=== PATIENT | female | born 2000 | race Caucasian/White ===

== ENCOUNTER 2021-06-14 15:36 | Outpatient (CLI) | payer BC, SELFPAY ==
--- NOTE | 2021-06-14 16:01 | ECG_ITS ---
Measurements Intervals [place] Rate: 82 P: 45 VT: 144 QRS: 67 QRSD: 97 T: 45 QT: 366 QTc: 428 Interpretive Statements SINUS RHYTHM WITH SINUS ARRHYTHMIA NORMAL ECG Electronically Signed On 06-14-2021 17:03:56 [employer] by Harsha Mohr D.O.
== END 2021-06-14 15:37 | disposition home or self-care (01) ==
LOC: ANHLAB 15:44
PROVIDERS: PCP Obstetrics & Gynecology; Visit Provider Obstetrics & Gynecology
DX: R55 Syncope and collapse (principal)
CPT/HCPCS: 93005

== ENCOUNTER 2021-06-22 12:53 | Outpatient (CLI) | payer BC, SELFPAY ==
--- NOTE | 2021-06-25 16:12 | WPDHOLTEREM ---
Holter/Event Monitor Holter/Event Monitor Date of procedure: 06/22/21 Holter/Event Procedure: 24 Hr Holter Monitor Indications: Tachycardia Conclusion: 1. 24 hour holter monitor on 06/22/21. 2. Underlying rhythm is sinus rhythm. HR range 50-143 bpm; average HR 83 bpm. 3. There are 3,945 premature supraventricular complexes, 6 supraventricular couplets, 6 supraventricular bigeminy and 95 supraventricular trigeminy. No supraventricular tachycardia. 4. There are 4,298 premature ventricular complexes, 1 ventricular couplet, 25 ventricular bigeminy, 33 ventricular trigeminy. No ventricular tachycardia. 5. No sinoatrial or atrioventricular blocks. No significant pauses greater than 2 seconds. 6. Patient reports symptoms of dizziness/lightheadedness which demonstrate sinus rhythm, HR range 76-106 bpm with 1 PVC.
== END 2021-06-22 12:54 | disposition home or self-care (01) ==
PROVIDERS: PCP Obstetrics & Gynecology; Visit Provider Student in an Organized Health Care Education/Training Program
DX: R00.0 Tachycardia, unspecified (principal)
CPT/HCPCS: 93225; 93226

== ENCOUNTER 2021-08-16 05:01 | Inpatient (IN) | payer BC, SELFPAY ==
[2021-08-16] VITALS (82 sets, daily range): BP systolic 85–136; BP diastolic 46–102; PULSE 62–125; TEMP 36.6–37.1; O2SAT 96–100; BMI 39.5
[2021-08-16 06:20] LABS: Basophils Absolute Auto 0.1 K/mm3 (0.0-0.1); Basophils Percent Auto 0.5 % (0.2-1.2); Eosinophils Absolute Auto 0.2 K/mm3 (0-0.3); Eosinophils Percent Auto 1.6 % (0-4.4); Hemoglobin 13.5 g/dL (12.0-15.0); Immature Granulocyte Percent A 2.6 % (0-0.5); Lymphocytes Absolute Auto 2.72 K/mm3 (0.9-3.2); Lymphocytes Percent Auto 23.3 % (18.3-44.2); Mean Corpuscular HGB Conc 32.9 g/dl (32-36); Mean Corpuscular Hemoglobin 30.3 pg (26-34); Mean Corpuscular Volume 92.1 fl (80-100); Mean Platelet Volume 8.6 fl (7.4-10.4); Monocytes Absolute Auto 1.1 K/mm3 (0.1-0.6); Monocytes Percent Auto 9.2 % (2.6-8.5); Neutrophils Absolute Auto 7.3 K/mm3 (1.3-6.7); Neutrophils Percent Auto 62.8 % (45.5-73.1); Platelet Count Result 167 k/mm3 (150-375); Red Blood Count 4.45 M/mm3 (4.2-5.4); Red Cell Distribution Width 13.7 % (11.5-14.5); White Blood Count 11.7 K/mm3 (4.5-10.0)
--- NOTE | 2021-08-16 06:27 | WPDANESEPP ---
Anes - Eval Pre Procedure Procedure: labor epidural Date/Time: 08/16/21 06:27 Surgeon: brandon Pre Op Diagnosis: IOL Patient Data Age: 21 Gender: F Height: 1.73 m Weight: 118 kg Last Vital Signs Pulse 87 08/16/21 06:16 BP 116/73 08/16/21 06:16 Allergies Allergy/AdvReac Type Severity Reaction Status Date / Time vancomycin Allergy Hives Verified 07/20/21 13:01 Home Medications Medication Instructions Recorded Confirmed Type cetirizine [Zyrtec] 10 mg PO DAILY 07/20/21 08/16/21 History propranolol 20 mg PO DAILY 07/20/21 08/16/21 History heparin (porcine) 10,000 unit SUBCUT Q12H 08/16/21 08/16/21 History Laboratory Tests 08/16/21 08/16/21 05:44 05:44 WBC 11.7 K/mm3 H K/mm3 (4.5-10.0) RBC 4.45 M/mm3 M/mm3 (4.2-5.4) Hgb 13.5 g/dL g/dL (12.0-15.0) Hct 41.0 % % (37.0-47.0) MCV 92.1 fl fl (80-100) MCH 30.3 pg pg (26-34) MCHC 32.9 g/dl g/dl (32-36) RDW 13.7 % % (11.5-14.5) Plt Count 167 k/mm3 k/mm3 (150-375) MPV 8.6 fl fl (7.4-10.4) Immature Gran % (Auto) 2.6 % H % (0-0.5) Neut % (Auto) 62.8 % % (45.5-73.1) Lymph % (Auto) 23.3 % % (18.3-44.2) [place] % (Auto) 9.2 % H % (2.6-8.5) Eos % (Auto) 1.6 % % (0-4.4) Baso % (Auto) 0.5 % % (0.2-1.2) Lymph # (Auto) 2.72 K/mm3 K/mm3 (0.9-3.2) [place] # (Auto) 1.1 K/mm3 H K/mm3 (0.1-0.6) Eos # (Auto) 0.2 K/mm3 K/mm3 (0-0.3) Baso # (Auto) 0.1 K/mm3 K/mm3 (0.0-0.1) Abs Immat Gran (auto) 0.30 K/mm3 H K/mm3 (0.00-0.031) Absolute Neuts (auto) 7.3 K/mm3 H K/mm3 (1.3-6.7) Absolute Nucleated RBC 0.0 K/mm3 K/mm3 (0.0-0.012) Nucleated RBC % 0.0 % % (0.0-0.2) RPR Pending Patient hx anesthesia problems: none Family hx anesthesia problems: none Results Review: All pre-operative results and documents have been reviewed as part of the pre-operative evaluation. [facility] Family History Family History (Updated 07/20/21 @ 13:03 by Jere Smith RN) Father Diabetes mellitus Heart disease Cerebrovascular accident Grandparent Lung cancer Other Lung cancer Social History Social History Smoking status: Former smoker Tobacco type: e-cigarettes/vaping Second hand tobacco smoke exposure: No Substance use: never Spiritual care concerns: No Exam Day of Procedure 08/16/21 06:27
[2021-08-16] MEDS: DINOPROSTONE 10 MG VAG INSERT VAGINAL (06:31)
[2021-08-16 07:28] LABS: Rapid Plasma Reagin Non-Reactive (NonReactive)
[2021-08-16] MEDS: PROPRANOLOL HCL 20 MG TABLET PO (09:34)
--- NOTE | 2021-08-16 14:54 | PM.IMHP ---
H&P: HPI History of Present Illness Date/Time: 08/16/21 14:54 Chief Complaint: Intrauterine at term Narrative: 21 yo G1 at 40w0d who presents for elective IOL. She endorses good movement. She denies any regular contractions, LOF, or vaginal bleeding. 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 Pt has been on lovenox this and transitioned to Heparin at 36wk. Review of Systems Cardiovascular: Cardiovascular: Denies chest pain, Denies leg edema, Denies palpitations, Denies dyspnea and Denies dyspnea on exertion Respiratory: Respiratory: Denies cough, Denies dyspnea and Denies dyspnea on exertion Gastrointestinal: Gastrointestinal: Denies abdominal pain, Denies constipation, Denies diarrhea, Denies nausea and Denies vomiting Genitourinary: Genitourinary: Denies hematuria, Denies urinary frequency, Denies dysuria, Denies pelvic pain, Denies urinary incontinence and Denies vaginal discharge Neurologic: Reports system reviewed and no additional complaints, except as documented Psychiatric: Psychiatric: Reports no additional psychiatric complaints Endocrine: Endocrine: Denies palpitations [facility] Family History Family History (Updated 07/20/21 @ 13:03 by Jere Smith RN) Father Diabetes mellitus Heart disease Cerebrovascular accident Grandparent Lung cancer Other Lung cancer Social History Social History Smoking status: Former smoker Tobacco type: e-cigarettes/vaping Second hand tobacco smoke exposure: No Substance use: never Spiritual care concerns: No Meds Home Medications and Allergies Home Medications Medication Instructions Recorded Confirmed Type cetirizine [Zyrtec] 10 mg PO DAILY 07/20/21 08/16/21 History propranolol 20 mg PO DAILY 07/20/21 08/16/21 History heparin (porcine) 10,000 unit SUBCUT Q12H 08/16/21 08/16/21 History Allergies Allergy/AdvReac Type Severity Reaction Status Date / Time vancomycin Allergy Hives Verified 07/20/21 13:01 Vital Signs Vital Signs - 24 hr 08/16/21 05:47 08/16/21 06:01 08/16/21 06:16 Temperature Pulse Rate 94 90 87 Blood Pressure 119/73 110/74 116/73 08/16/21 06:30 08/16/21 06:34 08/16/21 06:46 Temperature 37.1 C Pulse Rate 74 74 Blood Pressure 123/78 117/75 08/16/21 07:01 08/16/21 07:16 08/16/21 07:31 Temperature Pulse Rate 79 84 76 Blood Pressure 116/76 113/72 116/81 08/16/21 08:01 08/16/21 08:31 08/16/21 09:34 Temperature Pulse Rate 78 90 96 Blood Pressure 121/67 117/75 08/16/21 10:01 Temperature Pulse Rate 70 Blood Pressure 103/54 L Exam Const: General: no acute distress Eyes: EOM: EOMs intact bilaterally Neck: Neck: supple Thyroid: thyroid normal Chest: Breast/axilla inspection: normal inspection of the breasts Breast/axilla palpation: normal palpation of the breasts, normal palpation of the axillae and no axillary lymphadenopathy Resp: Effort & Inspection: normal respiratory effort Auscultation: clear to auscultation bilaterally Cardio: Rate: regular rate Rhythm: regular rhythm GI: Inspection: non-distended and other (Gravid) GI Palp: Yes Soft to palpation, No Tenderness to palpation present (GI) and No Guarding due to palpation present (GI) Auscultation: normal bowel sounds : Speculum Exam - Vagina: No vaginal bleeding OB/external & speculum: external exam normal; No vaginal bleeding Skin: General skin exam: normal color and no rashes or lesions noted Neuro: Cognition (Neuro): normal cognition Speech: normal speech Extrem: General: normal to inspection Psych: Mental Status: mental status grossly normal Affect: normal affect H&P: Results Labs Labs: Short CBC 08/16/21 Range/Units 05:44 WBC 11.7 H (4.5-10.0) K/mm3 Hgb 13.5 (12.0-15.0) g/dL Hct 41.0 (37.0-47.0) % Plt Count 167 (150-375) k/mm3 Asses
[2021-08-16] MEDS: LACTATED RINGERS 1,000 ML 125 ML IV CONT (16:50)
[2021-08-16] MEDS: AMPICILLIN 2 GM/NS 100 ML 2 GM/100 ML BAG IVPB (16:50)
[2021-08-16] MEDS: OXYTOCIN 30 UNITS/NS 500 ML 30 UNITS/500 ML BAG 4 UNITS IV CONT (16:52)
[2021-08-16] MEDS: fentaNYL CITRATE INJ (*CRX) 100 MCG/2 ML VIAL 50 MCG IV PUSH (19:53)
[2021-08-16] MEDS: ONDANSETRON INJ 4 MG/2 ML VIAL IV PUSH (20:50)
[2021-08-16] MEDS: AMPICILLIN 1 GM/NS 50 ML 1 GM/50 ML BAG IVPB (20:50)
[2021-08-17] VITALS (92 sets, daily range): BP systolic 79–138; BP diastolic 44–87; PULSE 61–108; RESP 16; TEMP 36.6–37.3; O2SAT 94–100
[2021-08-17] MEDS: LACTATED RINGERS 1,000 ML 125 ML IV CONT ×2 (00:10→05:26)
[2021-08-17] MEDS: AMPICILLIN 1 GM/NS 50 ML 1 GM/50 ML BAG IVPB ×2 (00:48→04:49)
--- NOTE | 2021-08-17 08:34 | PM.OBPNLAB ---
Pain Control Date/time seen: 08/17/21 08:34 Comments: Comfortable. Has started pushing. Pelvic Exam Dilation (cm): 10 Effacement (%): 100 station: +2 Contractions Contraction frequency: 3 Contraction pattern: Regular Status status: Category l Assessment and Plan Comments: Continue pushing.
[2021-08-17] MEDS: OXYTOCIN 30 UNITS/NS 500 ML 30 UNITS/500 ML BAG 125 UNITS IV CONT (09:18)
--- NOTE | 2021-08-17 09:25 | PM.OBPRVD ---
OB - Delivery Note Procedure Delivery date: 08/17/21 Procedure: Induction of labor with Delivery monitor: External FHT, External Uterine and Internal Uterine Route of delivery: Laceration Description: Perineal - 2nd Degree Delivery repair: vicryl (3-0) Quantitative Blood Loss (ml): 320 Anesthesia type: Epidural Disposition: PACU Complications: None Narrative: 21 y/o G1 at 40 1/7 weeks gestation who presented to the hospital for induction of labor. She received ampicillin for GBS colonization. She received Cervidil. The Cervidil was removed and oxytocin was administered intravenously. Amniotomy was performed with return of clear fluid. She received an epidural for pain control. Her labor progressed and her cervix dilated completely. She pushed with good effort and delivered the 's head to the perineum, followed by the body. The nose and mouth were bulb suctioned. After a delay, the cord was clamped and cut. The was handed off the field. Cord blood was collected. The placenta delivered spontaneously and was grossly normal in appearance. The usual 3 vessel cord was noted. A second degree midline perineal laceration was sustained. This was reapproximated using 3 0 Vicryl in the usual layered fashion. Excellent hemostasis resulted as did excellent reapproximation of the normal anatomy. Needle and instrument counts were correct. The patient was taken to recovery room in stable condition. The infant went to the nursery in stable condition. I was present and scrubbed for the entire delivery. Baby Date of : 08/17/21 Time of : 08:58 Weeks of gestation at delivery: 40 gender: Male Weight (pounds): 7 Weight (ounces): 4 presentation: vertex position: Right Occiput Anterior Placenta delivery description: Spontaneous and Normal Configuration Cord Vessel Description: 3 Vessels, Nuchal Cord and Delayed Cord Clamping score one minute: 9 score five minutes: 9
--- NOTE | 2021-08-17 09:28 | PM.OBDSVD ---
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 F, increased abdominal pain, increased vaginal bleeding or any new problems. Stand Alone Forms: General Discharge Information Follow-up/Referrals: Flip Tim MD [Physician] - 6 Weeks Discharge Medications: New enoxaparin [Lovenox] 40 mg/0.4 mL syringe 40 mg subcut DAILY Qty: 12 RF: 0 ibuprofen 600 mg tablet 600 mg PO Q6H PRN (Reason: cramps) Qty: 30 RF: 0 hydrocodone-acetaminophen 5-325 mg tablet 1 tablet PO Q6H PRN (Reason: pain) Qty: 20 RF: 0 Continued cetirizine [Zyrtec] 10 mg Tablet 10 mg PO DAILY RF: 0 propranolol 20 mg Tablet 20 mg PO DAILY RF: 0 Discontinued heparin (porcine) 10,000 unit/mL solution 10,000 unit subcut Q12H RF: 0 Date of admission: 08/16/21 05:01 Primary Care Provider: UNKNOWN,DOCTOR Admitting Provider: Flip Tim Attending physician on admission: Flip Tim Condition: Stable
[2021-08-17] MEDS: BENZOCAINE 20% AER SPR (*SP) 56 GM CAN 1 SPRAY TOPICAL (11:02)
[2021-08-17] MEDS: IBUPROFEN 600 MG TABLET PO ×2 (11:02→17:54)
[2021-08-17] MEDS: WITCH HAZEL 40 PADS 1 PAD TOPICAL (11:02)
--- NOTE | 2021-08-17 11:46 | PC.NURSE ---
1010 - 1030 Introductions were made and mother led the discussion of her desires to breastfeed her baby. Reviewed handwashing to prevent infection before and after taking care of her baby. Mother verbalizes she is unable to independently latch infant. Discussed how to watch for early feeding cues, place infant skin to skin, then feed baby when feeding cues are visualized. Discussed feeding cues, mother demonstrated understanding of hand expression and placed scant colostrum into infants mouth. Reviewed positioning/alignment with the use of the. Encouraged mother with infant skin to skin between breast and after some time feeding cues were observed by mother. RN assisted mother with infant to the right breast in football position using nipple to nose. Reviewed asymmetrical latch (off center), big wide gape (140 degrees) and there is to be no pain with . Attempts were made and improved over time with efforts without sucking. Mother voiced understanding to feed infant when she sees feeding cues, 8-12 times in 24 hours approximately every 2-3 hours from the start of the last feeding and to call for assistance if there is no latch or she has discomfort with nursing. Reported to primary RN.
--- NOTE | 2021-08-17 15:15 | PC.NURSE ---
[id number] Consulted with patient, reviewed feeding cues, frequencies, duration of feedings, feeding elimination flow sheet, and signs of adequate intake. Reviewed good hand washing. Demonstrated stimulation techniques to wake for feeding. is skin to skin with mother. Reviewed positioning/alignment, holding breast and asymmetrical latch on. was unable to latch correctly. Mother hand expressed colostrum and placed into the infants mouth. is sleepy and reluctant to latch and has made 1-2 effective attempts. The parents are working well together with baby and baby is not showing interest at this time. Discussed risks and benefits of feeding options, pumping and nipple shield. Parents want to attempt with an electric pump for production of milk and to bring the grade 1-2 nipple out. Baby takes a few seconds to suck on a gloved finger and is sleepy. Encouraged mom to practice 8-12 times in a 24 hour period , stretching her nipples, hand expression and pumping to encourage to eat and milk production. Baby burped and expressed some clearing fluid. Infant placed skin to skin after attempts and finger fed colostrum that was hand expressed. Mother voiced understanding to call when she visualizes feeding cues. Reported to primary RN. 1435 - is skin to skin with mother and not showing feeding cues. Breast pump provided due to no latching since . Reviewed information with parents regarding pump care, hand washing, nipple care and pumping 8 times in 24 hours (1-2 at night) for 10-15 minutes. Suggested pump after each attempt to breastfeed. Reviewed collection and storage of breastmilk per mom and baby guide. Pumping session yielded about 0.2ml of colostrum that was spoon fed to at 1500. Reported to primary RN.
[2021-08-17] MEDS: DOCUSATE SODIUM 100 MG CAPSULE PO (17:54)
[2021-08-17] MEDS: ENOXAPARIN 40 MG/0.4 ML SYRINGE SUB-Q (17:55)
[2021-08-17] MEDS: ONDANSETRON INJ 4 MG/2 ML VIAL IV PUSH (18:29)
[2021-08-17] MEDS: HYDROcodone/acetaminophen (*CRX) 5-325 MG TABLET 1 TAB PO (20:49)
[2021-08-18 00:30] VITALS: BP 107/60; PULSE 78; RESP 16; TEMP 36.8; O2SAT 99
[2021-08-18] MEDS: HYDROcodone/acetaminophen (*CRX) 5-325 MG TABLET 1 TAB PO ×3 (00:47→14:40)
[2021-08-18] MEDS: IBUPROFEN 600 MG TABLET PO ×4 (00:47→21:48)
[2021-08-18 04:30] VITALS: BP 114/60; PULSE 85; RESP 16; TEMP 36.8; O2SAT 99
[2021-08-18 05:20] LABS: Hematocrit 33.5 % (37.0-47.0); Hemoglobin 11.2 g/dL (12.0-15.0)
[2021-08-18 07:35] VITALS: BP 114/66; PULSE 72; RESP 16; TEMP 36.3
--- NOTE | 2021-08-18 08:07 | PM.OBPNVD ---
OB - PN: Subj Subjective Date/time seen: 08/18/21 08:07 Narrative: Pain OK. Would like circumcision for son. OB - PN: Obj Data Labs CBC & Chem 7: 08/18/21 04:43 Labs: Laboratory Results - last 24 hr 08/18/21 04:43 Hgb 11.2 L Hct 33.5 L OB - PN A/P Plan Comments: A: PPD#1, doing well. P: Reviewed circ. Routine care. Plan home tomorrow. Exam Psych: Other: AVSS ABD soft, nontender, fundus firm EXT nontender
--- NOTE | 2021-08-18 08:08 | WPDANLDPN2 ---
Anes-Prog Note L&D Date/Time: 08/18/21 08:08 Comfortable throughout: labor and delivery Neuraxial method: epidural Epidural/Spinal procedure site: clean & non-tender Neuro status: Neuro function grossly intact. Cardiovascular status: normal Respiratory status: normal Airway patency: baseline Mental status: baseline Post-Op hydration status: normal Vital Signs: Last Vital Signs Temp 36.8 C 08/18/21 04:30 Pulse 85 08/18/21 04:30 Resp 16 08/18/21 04:30 BP 114/60 08/18/21 04:30 Pulse Ox 99 08/18/21 04:30 Pain score (VAS): 0 Post-procedural complaints: none Patient feedback: Patient satisfied with anesthetic care.
[2021-08-18 08:41] VITALS: PULSE 72
[2021-08-18] MEDS: MULTIVIT/MIN/PREN/FOL AC/IRON TABLET 1 TAB PO (08:41)
[2021-08-18] MEDS: PROPRANOLOL HCL 20 MG TABLET PO (08:41)
[2021-08-18] MEDS: DOCUSATE SODIUM 100 MG CAPSULE PO (08:42)
[2021-08-18] MEDS: LORATADINE 10 MG TABLET PO (08:42)
[2021-08-18 19:02] VITALS: BP 129/75; PULSE 100; RESP 16; TEMP 37.1; O2SAT 100
[2021-08-18] MEDS: ENOXAPARIN 40 MG/0.4 ML SYRINGE SUB-Q (21:46)
[2021-08-18] MEDS: ACETAMINOPHEN 325 MG TABLET 650 MG PO (21:47)
[2021-08-19] MEDS: IBUPROFEN 600 MG TABLET PO ×2 (05:51→15:30)
[2021-08-19] MEDS: HYDROcodone/acetaminophen (*CRX) 5-325 MG TABLET 1 TAB PO ×2 (08:07→15:30)
[2021-08-19 09:00] VITALS: BP 115/60; PULSE 78; RESP 18; TEMP 36.8; O2SAT 99
[2021-08-19 09:10] VITALS: PULSE 78
[2021-08-19] MEDS: MULTIVIT/MIN/PREN/FOL AC/IRON TABLET 1 TAB PO (09:10)
[2021-08-19] MEDS: DOCUSATE SODIUM 100 MG CAPSULE PO (09:10)
[2021-08-19] MEDS: LORATADINE 10 MG TABLET PO (09:10)
[2021-08-19] MEDS: PROPRANOLOL HCL 20 MG TABLET PO (09:10)
--- NOTE | 2021-08-19 14:24 | PC.NURSE ---
Patient to view the discharge video Mother & Baby Care, The First Two Weeks online. Patient was given the opportunity and encouraged to ask questions. Patient verbalized understanding of information shared and has been given the mother/baby guide for home reference.
[2021-08-20 09:41] VITALS: BP 131/80; PULSE 83; RESP 16; TEMP 37.1; O2SAT 100
== END 2021-08-19 15:35 | disposition home or self-care (01) | DRG 806 ==
LOC: ANHLDR 08-17 09:29 → ANHOB2 08-17 13:02 → ANHLDR 08-20 11:10 → ANHOB2 08-20 11:10
PROVIDERS: Admitting Provider Student in an Organized Health Care Education/Training Program; Visit Provider Obstetrics & Gynecology
DX: O99.12 Other diseases of the blood and blood-forming organs and certain disorders involving the immune mechanism complicating childbirth (principal); D68.52 Prothrombin gene mutation; Z37.0 Single live birth; Z3A.40 40 weeks gestation of pregnancy; O99.824 Streptococcus B carrier state complicating childbirth; O36.8330 Maternal care for abnormalities of the fetal heart rate or rhythm, third trimester, not applicable or unspecified; O70.1 Second degree perineal laceration during delivery; O69.81X0 Labor and delivery complicated by cord around neck, without compression, not applicable or unspecified; O99.42 Diseases of the circulatory system complicating childbirth; R00.0 Tachycardia, unspecified; O99.214 Obesity complicating childbirth; E66.9 Obesity, unspecified
CPT/HCPCS: 36415; 85014; 85018; 85025; 86592; 86850; 86900; 86901; A9270; J0290; J1650; J2405; J2590; J2795; J3010; J7120

== ENCOUNTER 2022-04-14 18:59 | Emergency (ER) | payer BC, MEDICAID, SELFPAY ==
--- NOTE | ~2022-04-14 | XR_ITS ---
EXAM: XR ankle RT min 3V, XR foot RT min 3V DATE: 04/14/2022 19:38 (accession [id number]), 04/14/2022 19:37 (accession [id number]) HISTORY: 04/14/22 STEPPED DOWN STEP, ROLLED. LATERAL PAIN. . COMPARISON: None available. FINDINGS: Normal mineralization. No fracture or dislocation. No lytic or blastic lesion. Joint space s are maintained. Minimal Achilles enthesopathy. No erosion or periosteal change. Soft tissues within normal limits. IMPRESSION: No acute osseous finding in the right foot or ankle. Reviewed, dictated and finalized at location K. IMPRESSION: No acute osseous finding in the right foot or ankle.
[2022-04-14 19:08] VITALS: BP 106/68; PULSE 88; RESP 16; TEMP 36.5; O2SAT 99
--- NOTE | 2022-04-14 19:30 | ED.LOWEXIN ---
HPI - Extremity Injury (Lower) General Chief Complaint: Extremity Injury, Lower Stated Complaint: right foot/ankle injury Time Seen by Provider: 04/14/22 19:10 Source: patient, RN notes reviewed and old records reviewed Mode of arrival: ambulatory Limitations: no limitations History of Present Illness HPI Narrative: 22-year-old female accompanied by niece presents to express care with complaints of injury to the right foot and ankle following a fall at 1030 this morning, Patient she stepped out at the cabin that she had stayed in overnight with family girl weekend trip to put her luggage in the car and when she did she caught her great toe in the stair and fell onto her right lateral ankle and foot. Patient verbalizes her pain to lateral ankle and to her toes. MD complaint: ankle injury (right), foot injury and fall Onset (ago): hour(s) (occurred at 1030 today) Place: other (leaving cabin) Severity scale (1-10): 5 Treatments prior to arrival: cold therapy and NSAIDS Related Data Home Medications Medication Instructions Recorded Confirmed cetirizine 10 mg tablet (Zyrtec) 10 mg PO DAILY 07/20/21 04/14/22 citalopram 40 mg tablet 40 mg PO DAILY 04/14/22 04/14/22 methylphenidate HCl 20 mg tablet 20 mg PO BID 04/14/22 04/14/22 Allergies Allergy/AdvReac Type Severity Reaction Status Date / Time vancomycin Allergy Hives Verified 04/14/22 19:19 Review of Systems Review of Systems: CONSTITUTIONAL: Denies fever, chills, or sweats. CARDIOVASCULAR: Denies chest pain, palpitations, or edema. RESPIRATORY: Denies cough or dyspnea. SKIN: Denies rash or itching. Denies laceration positive for abrasions to bilateral knees with no bleeding noted. MUSCULOSKELETAL: Reports pain to lateral right ankle and right great toe with some swelling noted, states great toe feels somewhat numb, toes cool but adela briskly. NEUROLOGIC: Denies numbness, or weakness. 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 Right wrist fracture Surgical History Surgical History (Updated 04/18/22 @ 08:40 by Paty Lopez NP) H/O sinus surgery History of brain surgery for infection History of tonsillectomy and adenoidectomy Hx of cholecystectomy Family History Family History Father Diabetes mellitus Heart disease Cerebrovascular accident Grandparent Lung cancer Other Lung cancer Social History Social History Smoking status: Former smoker Tobacco type: e-cigarettes/vaping Second hand tobacco smoke exposure: No Substance use: never Spiritual care concerns: No Comments At time of signature, agree with nursing past medical, surgical, social and family history. There is no relevant family history pertinent to the presenting complaint Exam Narrative: GENERAL: Well-appearing, well-nourished, and in no acute distress. HEAD: Normocephalic, atraumatic. EYES: PERRLA, conjunctivae clear NECK: Supple. CHEST: Speaks in full sentences. No respiratory distress. HEART: Regular rate and rhythm. Normal and equal peripheral pulses. EXTREMITIES: right ankle has normal strength and sensation, normal range of motion.mild edema or ecchymosis. 5/5 strength with right ankle flexion and extension. Normal sensation with sensitivity to light touch and pain. No point tenderness.? ?No open wounds, no skin tenting, no devitalized tissue or atrophy, no trophic changes, no obvious deformity, alignment normal, nearby joints and structures intact. Distal pulses palpable and equal bilaterally, skin warm, dry, pink. Capillary refill less than 3 seconds. Pain to right big toe. Course Course Emergency Course:
== END 2022-04-14 19:55 | disposition home or self-care (01) ==
PROVIDERS: Emergency Provider Registered Nurse; PCP Family Medicine
DX: S93.401A Sprain of unspecified ligament of right ankle, initial encounter (principal); S96.911A Strain of unspecified muscle and tendon at ankle and foot level, right foot, initial encounter; S90.31XA Contusion of right foot, initial encounter; W18.09XA Striking against other object with subsequent fall, initial encounter; F90.9 Attention-deficit hyperactivity disorder, unspecified type; F41.9 Anxiety disorder, unspecified; F32.A Depression, unspecified
CPT/HCPCS: 73610; 73630; 99213; G0463

== ENCOUNTER 2022-07-15 11:17 | Outpatient (CLI) | payer BC, MEDICAID, SELFPAY ==
[2022-07-15 13:01] LABS: Basophils Percent Auto 0.2 % (0.2-1.2); Eosinophils Absolute Auto 0.1 K/mm3 (0-0.3); Hematocrit 40.9 % (37.0-47.0); Hemoglobin 13.3 g/dL (12.0-15.0); Immature Granulocyte Absolute 0.01 K/mm3 (0.00-0.031); Immature Granulocyte Percent A 0.2 % (0-0.5); Lymphocytes Absolute Auto 1.59 K/mm3 (0.9-3.2); Lymphocytes Percent Auto 25.9 % (18.3-44.2); Mean Corpuscular HGB Conc 32.5 g/dl (32-36); Mean Corpuscular Hemoglobin 29.6 pg (26-34); Mean Corpuscular Volume 91.1 fl (80-100); Mean Platelet Volume 8.5 fl (7.4-10.4); Monocytes Absolute Auto 0.5 K/mm3 (0.1-0.6); Monocytes Percent Auto 7.3 % (2.6-8.5); Neutrophils Percent Auto 64.4 % (45.5-73.1); Platelet Count Result 197 k/mm3 (150-375); Red Blood Count 4.49 M/mm3 (4.2-5.4); Red Cell Distribution Width 12.6 % (11.5-14.5); White Blood Count 6.2 K/mm3 (4.5-10.0)
[2022-07-15 13:13] LABS: Glucose 1 Hour PP 50gm Dose 63 mg/dL
[2022-07-15 13:57] LABS: HIV 1/2 Ab P24 Ag Result Negative (Negative)
[2022-07-15 14:14] LABS: Hepatitis B Surface Antigen Negative (Negative); Rubella IgG Antibody 24.4 IU/ML
[2022-07-15 14:26] LABS: Hepatitis C Virus Antibody Negative (Negative)
[2022-07-16 10:16] LABS: Rapid Plasma Reagin Non-Reactive (NonReactive)
[2022-07-18 15:55] LABS: CMV IgG Antibody <0.60 U/mL (<0.60)
== END 2022-07-15 11:18 | disposition home or self-care (01) ==
LOC: ANHLAB 11:19
PROVIDERS: PCP Family Medicine; Visit Provider Student in an Organized Health Care Education/Training Program
DX: N94.89 Other specified conditions associated with female genital organs and menstrual cycle (principal)
CPT/HCPCS: 36415; 82947; 84702; 85025; 86592; 86644; 86703; 86747; 86762; 86787; 86803; 86850; 86900; 86901; 87086; 87340; G0432

== ENCOUNTER 2022-07-30 20:00 | Emergency (ER) | payer BC, MEDICAID, SELFPAY ==
--- NOTE | ~2022-07-30 | US_ITS ---
EXAMINATION: US OB <=14 wk fetus w TV INDICATION: vag bleeding in TECHNIQUE: Sonography of the pelvis was performed by transabdominal and transvaginal techniques. COMPARISON: None. RESULT: Uterus: Orientation: Anteverted. 12.0 x 7.9 x 9.1 cm. Myometrium: homogeneous echogenicity. The cerv ix is long and closed. Gestation: - Intrauterine gestational sac: Single present. - Yolk sac: Not visualized. - Embryo: Single present. - Elizabeth rump length: 5.4 cm, corresponding gestational age 12 weeks, 1 days. Biparietal diamet er also obtained, 1.88 cm corresponding to a gestational age of 12 weeks and 6 days. -Gestational heart rate: present 160 bpm. -Subgestational hematoma: Absent . Right ovary: 3.8 x 2.1 x 2.9 cm. Normal sonographic appearance with physiologic follicles. . Simpl e cysts. Normal color flow. Left ovary: 2.7 x 2.0 x 1.6 cm. Normal sonographic appearance with physiologic follicles. . Normal color-flow. Pelvis free fluid: None. IMPRESSION: Single, live intrauterine gestation. Estimated Gestational Age: 12 weeks, 4 days by crown-rump length and biparietal diameter. SLADE by elaina nolen 02/07/2023. Reviewed, dictated and finalized at location K. ICAL STUDY MANAGER IMPRESSION: Single, live intrauterine gestation. Estimated Gestational Age: 12 weeks, 4 days by crown-rump length and biparieta l diameter. SLADE by ultrasound 02/07/2023.
[2022-07-30 20:01] VITALS: BP 140/67; PULSE 83; RESP 16; TEMP 36.1; O2SAT 100
--- NOTE | 2022-07-30 21:39 | ED.FEMALEGU ---
HPI - Female Genitourinary General Chief complaint: Vaginal Bleeding Stated complaint: 12 wks -cramping and bleeding Time Seen by Provider: 07/30/22 21:29 History of Present Illness HPI Narrative: Patient is a 22-year-old G2, P1 female who is currently 12 weeks here for evaluation of vaginal bleeding and left-sided pelvic cramping today. Patient states that when she went to the bathroom and wiped she noticed a large amount of blood on the toilet tissue. She also noted a cramping sensation in her left pelvic area. She has not attempted any medicine for pain. She has had an ultrasound that has confirmed IUP. She had an appointment with her RN ONCOLOGY Dr. Tim today that was reassuring. Related Data Home Medications Medication Instructions Recorded Confirmed citalopram 40 mg tablet 40 mg PO DAILY 04/14/22 04/14/22 methylphenidate HCl 20 mg tablet 20 mg PO BID 04/14/22 04/14/22 levocetirizine 5 mg tablet (Xyzal) 5 mg PO DAILY 07/30/22 Allergies Allergy/AdvReac Type Severity Reaction Status Date / Time vancomycin Allergy Hives Verified 07/30/22 20:05 Review of Systems Review of Systems: Gen.: Denies fevers or chills Eyes: Denies eye pain or visual change ENT: Denies congestion Respiratory: Denies shortness of breath or cough CV: Denies chest pain or palpitations GI: Reports abdominal cramping. Denies abdominal pain nausea, emesis or diarrhea : Reports vaginal bleeding. 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 Right wrist fracture Suppression of menses Suppression of menses Vaginal discharge Surgical History Surgical History H/O sinus surgery History of brain surgery for infection History of tonsillectomy and adenoidectomy Hx of cholecystectomy Family History Family History Father Diabetes mellitus Heart disease Cerebrovascular accident Grandparent Lung cancer Other Lung cancer Social History Social History Smoking status: Current some day smoker Tobacco type: e-cigarettes/vaping Second hand tobacco smoke exposure: No Alcohol intake: never Substance use: never Living arrangements: with family Occupation/Education: occupation Gender identity (if verbalized by the patient): Female Spiritual care concerns: No Exam Narrative: APPEARANCE: Well appearing, no pain in distress, well-nourished. Head: Normocephalic and atraumatic. EYES: PERRLA/EOMI, conjunctivae clear NOSE: No nasal drainage EARS: External ear normal in appearance THROAT: Oropharynx is clear. Mucous membranes are moist. NECK: Supple. No adenopathy, no masses. RESPIRATORY: Airway patent, respirations nonlabored. Clear to auscultation bilaterally, no rales, rhonchi, wheezing. CARDIOVASCULAR: Regular rate and rhythm without murmurs, rubs, or gallops. : external hemorrhoid noted. no blood in vaginal vault, scant amount of white discharge. no CMT. ABDOMINAL: Normoactive bowel sounds. Soft, nontender, nondistended. No rebound tenderness or guarding. MUSCULOSKELETAL: Extremities are warm and well-perfused. Moves all extremities well. No edema. NEURO: Normal speech. No focal neurologic deficits. SKIN: Skin is warm and dry. No rashes. PSYCHIATRIC: Normal affect/mood. Course Vital Signs Vital signs: Vital Signs Temperature 97.0 F L 07/30/22 20:01 Pulse Rate 83 07/30/22 20:01 Respiratory Rate 16 07/30/22 20:01 Blood
[2022-07-30 22:30] LABS: Basophils Percent Auto 0.3 % (0.2-1.2); Eosinophils Absolute Auto 0.2 K/mm3 (0-0.3); Eosinophils Percent Auto 2.3 % (0-4.4); Hematocrit 39.6 % (37.0-47.0); Immature Granulocyte Absolute 0.03 K/mm3 (0.00-0.031); Immature Granulocyte Percent A 0.4 % (0-0.5); Lymphocytes Absolute Auto 2.06 K/mm3 (0.9-3.2); Lymphocytes Percent Auto 26.3 % (18.3-44.2); Mean Corpuscular HGB Conc 32.8 g/dl (32-36); Mean Corpuscular Hemoglobin 29.5 pg (26-34); Mean Platelet Volume 8.5 fl (7.4-10.4); Monocytes Absolute Auto 0.5 K/mm3 (0.1-0.6); Monocytes Percent Auto 6.4 % (2.6-8.5); Neutrophils Percent Auto 64.3 % (45.5-73.1); Platelet Count Result 195 k/mm3 (150-375); Red Cell Distribution Width 12.7 % (11.5-14.5); White Blood Count 7.8 K/mm3 (4.5-10.0)
[2022-07-30 22:36] LABS: Mucus Urine Rare /lpf; Squamous Epithelial Cell Urine Rare /hpf (Few); WBC Urine 0-3 /hpf
[2022-07-30 22:38] LABS: Add Urine Microscopic? NO; Appearance Urine Clear (Clear); Bilirubin Urine Negative (Negative); Blood Urine Negative (Negative); Color Urine Yellow (Yellow); Glucose Urine UA Negative (Negative); Ketones Urine Negative (Negative); Leukocyte Esterase Ur Negative LEU/UL (Negative); Nitrate Urine Negative (Negative); Protein Urine Negative (Negative); Specific Grav Ur 1.025 (1.001-1.035); Urobilinogen Urine 0.2 mg/dL (<2.0)
== END 2022-07-30 23:42 | disposition home or self-care (01) ==
PROVIDERS: Emergency Provider Physician Assistant; PCP Family Medicine
DX: O22.41 Hemorrhoids in pregnancy, first trimester (principal); Z3A.12 12 weeks gestation of pregnancy
CPT/HCPCS: 36415; 76801; 76817; 81003; 84702; 85025; 85461; 86850; 86900; 86901; 99284

== ENCOUNTER 2022-11-20 10:47 | Outpatient (CLI) | payer BC, MEDICAID, SELFPAY ==
[2022-11-20 12:50] LABS: Basophils Percent Auto 0.3 % (0.2-1.2); Eosinophils Absolute Auto 0.1 K/mm3 (0-0.3); Eosinophils Percent Auto 1.4 % (0-4.4); Hematocrit 38.9 % (37.0-47.0); Hemoglobin 12.6 g/dL (12.0-15.0); Immature Granulocyte Absolute 0.16 K/mm3 (0.00-0.031); Immature Granulocyte Percent A 1.6 % (0-0.5); Lymphocytes Absolute Auto 1.91 K/mm3 (0.9-3.2); Lymphocytes Percent Auto 18.6 % (18.3-44.2); Mean Corpuscular HGB Conc 32.4 g/dl (32-36); Mean Corpuscular Hemoglobin 28.7 pg (26-34); Mean Corpuscular Volume 88.6 fl (80-100); Mean Platelet Volume 8.6 fl (7.4-10.4); Monocytes Absolute Auto 0.7 K/mm3 (0.1-0.6); Monocytes Percent Auto 6.3 % (2.6-8.5); Neutrophils Absolute Auto 7.4 K/mm3 (1.3-6.7); Neutrophils Percent Auto 71.8 % (45.5-73.1); Platelet Count Result 180 k/mm3 (150-375); Red Blood Count 4.39 M/mm3 (4.2-5.4); White Blood Count 10.3 K/mm3 (4.5-10.0)
[2022-11-20 13:01] LABS: Glucose 1 Hour PP 50gm Dose 66 mg/dL
[2022-11-20 13:42] LABS: HIV 1/2 Ab P24 Ag Result Negative (Negative)
== END 2022-11-20 10:48 | disposition home or self-care (01) ==
LOC: ANHLAB 10:49
PROVIDERS: PCP Family Medicine; Visit Provider Obstetrics & Gynecology
DX: Z34.90 Encounter for supervision of normal pregnancy, unspecified, unspecified trimester (principal); Z3A.00 Weeks of gestation of pregnancy not specified
CPT/HCPCS: 36415; 82947; 85025; 86703; G0432

== ENCOUNTER 2023-01-28 12:19 | Outpatient (RCR) | payer BC, MEDICAID, SELFPAY ==
[2022-12-26 12:11] VITALS: BP 117/63; PULSE 109
[2023-01-02 13:05] VITALS: BP 105/61; PULSE 80
[2023-01-09 12:02] VITALS: BP 114/67; PULSE 117
[2023-01-16 15:02] VITALS: BP 128/69; PULSE 113
[2023-01-23 12:34] VITALS: BP 116/68; PULSE 117
--- NOTE | ~2023-01-28 | US_ITS ---
EXAMINATION: US OB BPP wo non-stress DATE: 12/19/2022 12:14 INDICATION: Variable decelerations. Third trimester. TECHNIQUE: Real-time pelvic ultrasound was performed. COMPARISON: Ultrasound 07/30/2022, 07/15/2022 FINDINGS: There is a single living fetus in vertex presentation. The placenta is posterior. heart rate i s 142 beats per minute (bpm). Biophysical profile performed by the technologist: breathing (30 sec sustained breathing in 30 minutes): 2 out of 2 movement (3 gross body movements in 30 minutes): 2 out of 2 tone (one episode of pzmqdfz-hfwmcaxqf-ebxixqt limb movement): 2 out of 2 Amniotic fluid pocket (2 cm): 2 out of 2 Total score: 8 out of 8 IMPRESSION: 1. Single living fetus in vertex presentation. 2. Biophysical profile 8 out of 8. Reviewed, dictated and finalized at location A.
[2023-01-28 13:57] VITALS: BP 122/67; PULSE 77
== END 2023-02-17 13:05 | disposition home or self-care (01) ==
LOC: ANHOBOP 12:19
PROVIDERS: PCP Family Medicine; Visit Provider Student in an Organized Health Care Education/Training Program
DX: O36.8330 Maternal care for abnormalities of the fetal heart rate or rhythm, third trimester, not applicable or unspecified (principal); Z3A.32 32 weeks gestation of pregnancy
CPT/HCPCS: 59025; 76819

== ENCOUNTER 2023-02-05 06:33 | Inpatient (IN) | payer OTHER, MEDICAID, SELFPAY ==
[2023-02-05] VITALS (134 sets, daily range): BP systolic 86–138; BP diastolic 38–93; PULSE 65–125; RESP 16–18; TEMP 36.3–37.2; O2SAT 97–100; BMI 38.7
--- NOTE | 2023-02-05 06:33 | LDADM ---
This patient, Yara Sam, was admitted to Labor/Delivery/Recovery 108 on 02/05/23 at 06:33. Plans for labor, pain management and were discussed with patient. Patient/family oriented to hospital policies and general routines including ID bracelet, bed and alarms, visiting hours, pain management, procedures, bathroom and other care routines, personal items, smoking policy, room service/diet and guest tray routines, infant security routines, and visiting hours. Patient/Family are encouraged to report perceived risks to care and to ask questions if they do not understand what they are told or what they should do. See OBIX for further documentation.
--- NOTE | 2023-02-05 07:06 | WPDHPUPDATE1 ---
History and Physical Update Update Date/Time: 02/05/23 07:06 22-year-old at 39 weeks 0 days who presents for elective induction of labor. has been complicated by a prothrombin gene mutation and history of DVT. Patient has been on Lovenox throughout her and was transition to heparin at 36 weeks. History and Physical has been reviewed, including an updated exam of the patient. There are NO changes in the patient's condition. Risks, benefits, and alternatives have been discussed and questions answered. Patient agrees to proceed with procedure. A/P: Admit to L&D Routine admission orders Rh positive GBS positive, will start abx in labor Will hold heparin intrapartum, will resume Continuous external monitoring Will plan for Pitocin induction of labor
[2023-02-05 07:30] LABS: Basophils Percent Auto 0.3 % (0.2-1.2); Eosinophils Absolute Auto 0.2 K/mm3 (0-0.3); Eosinophils Percent Auto 1.5 % (0-4.4); Hematocrit 36.8 % (37.0-47.0); Hemoglobin 11.6 g/dL (12.0-15.0); Immature Granulocyte Absolute 0.24 K/mm3 (0.00-0.031); Lymphocytes Percent Auto 17.5 % (18.3-44.2); Mean Corpuscular HGB Conc 31.5 g/dl (32-36); Mean Corpuscular Hemoglobin 27.2 pg (26-34); Mean Corpuscular Volume 86.2 fl (80-100); Mean Platelet Volume 8.7 fl (7.4-10.4); Monocytes Absolute Auto 0.9 K/mm3 (0.1-0.6); Monocytes Percent Auto 7.2 % (2.6-8.5); Neutrophils Absolute Auto 8.6 K/mm3 (1.3-6.7); Neutrophils Percent Auto 71.5 % (45.5-73.1); Platelet Count Result 171 k/mm3 (150-375); Red Blood Count 4.27 M/mm3 (4.2-5.4); Red Cell Distribution Width 14.4 % (11.5-14.5)
[2023-02-05] MEDS: LACTATED RINGERS 1,000 ML 125 ML IV CONT ×3 (07:51→20:20)
[2023-02-05] MEDS: OXYTOCIN 30 UNITS/NS 500 ML 30 UNITS/500 ML BAG IV CONT (07:52)
[2023-02-05] MEDS: AMPICILLIN 2 GM/NS 100 ML 2 GM/100 ML BAG IVPB (07:58)
--- NOTE | 2023-02-05 09:03 | WPDANESEPP ---
Anes - Eval Pre Procedure Procedure: labor epidural Date/Time: 02/05/23 09:04 Surgeon: brandon Preop Diagnosis: pain during labor Pre Op Diagnosis: IOL Patient Data Age: 22 Gender: F Height: 1.73 m Weight: 115.6 kg Last Vital Signs Temp 36.4 C 02/05/23 08:34 Pulse 93 02/05/23 09:00 BP 131/61 02/05/23 09:00 Allergies Allergy/AdvReac Type Severity Reaction Status Date / Time vancomycin Allergy Mild Hives Verified 02/04/23 10:44 Home Medications Medication Instructions Recorded Confirmed Type ondansetron HCl 4 mg tablet 4 mg PO Q6H PRN nausea and 07/30/22 01/16/23 Rx vomiting #30 tabs aspirin 81 mg tablet,delayed 162 mg PO DAILY 09/02/22 01/16/23 History release meclizine 25 mg tablet 25 mg PO BID PRN dizziness #60 tabs 10/01/22 01/16/23 Rx cetirizine 10 mg capsule (Zyrtec) 10 mg PO DAILY PRN Allergy Symptoms 10/29/22 02/05/23 History heparin (porcine) 5,000 unit/mL 5,000 unit subcut Q12H #25 mL 01/16/23 02/05/23 Rx injection solution methylphenidate HCl 10 mg tablet 10 mg PO BID 01/16/23 02/05/23 History methylphenidate HCl 5 mg tablet 5 mg PO BID 01/16/23 02/05/23 History Laboratory Tests 02/05/23 07:10 WBC 12.0 H K/mm3 (4.5-10.0) RBC 4.27 M/mm3 (4.2-5.4) Hgb 11.6 L g/dL (12.0-15.0) Hct 36.8 L % (37.0-47.0) MCV 86.2 fl (80-100) MCH 27.2 pg (26-34) MCHC 31.5 L g/dl (32-36) RDW 14.4 % (11.5-14.5) Plt Count 171 k/mm3 (150-375) MPV 8.7 fl (7.4-10.4) Immature Gran % (Auto) 2.0 H % (0-0.5) Neut % (Auto) 71.5 % (45.5-73.1) Lymph % (Auto) 17.5 L % (18.3-44.2) Cache % (Auto) 7.2 % (2.6-8.5) Eos % (Auto) 1.5 % (0-4.4) Baso % (Auto) 0.3 % (0.2-1.2) Lymph # (Auto) 2.10 K/mm3 (0.9-3.2) [place] # (Auto) 0.9 H K/mm3 (0.1-0.6) Eos # (Auto) 0.2 K/mm3 (0-0.3) Baso # (Auto) 0.0 K/mm3 (0.0-0.1) Abs Immat Gran (auto) 0.24 H K/mm3 (0.00-0.031) Absolute Neuts (auto) 8.6 H K/mm3 (1.3-6.7) Absolute Nucleated RBC 0.0 K/mm3 (0.0-0.012) Nucleated RBC % 0.0 % (0.0-0.2) RPR Pending Blood Type O Positive Antibody Screen Negative Patient hx anesthesia problems: none Family hx anesthesia problems: none Results Review: All pre-operative results and documents have been reviewed as part of the pre-operative evaluation. 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 Right wrist fracture Suppression of menses Suppression of menses Vaginal discharge Surgical History Surgical History H/O sinus surgery History of brain surgery for infection History of tonsillectomy and adenoidectomy Hx of cholecystectomy Family History Family History Father Diabetes mellitus Heart disease Cerebrovascular accident Grandparent Lung cancer Other Lung cancer Social History Social History Smoking status: Current some day smoker Tobacco type: e-cigarettes/vaping Second hand tobacco smoke exposure: No Additional smoking assessment comments: started vaping at 14 Alcohol intake: never Substance use: current Last use: December 2022 Lack of Transportation: No Lack of Food: Never True Current Housing: I Have Housing Concerned About Future Housing: No Difficulty Paying Gas/Electric Bills: No Difficulty Paying for Meds: No Currently Unemployed: No Education: Trade/Vocational Certificate Difficulty w/ Childcare or Family Care: No Living arrangements: with family Occupation/Education: occupation Gender identity (if verbalized by the patient): Female Spiritual care concerns: No Exam D
[2023-02-05 09:22] LABS: Rapid Plasma Reagin Non-Reactive (NonReactive)
--- NOTE | 2023-02-05 12:01 | PM.OBPNLAB ---
Pain Control Date/time seen: 02/05/23 12:01 Pain control: tolerating well Pelvic Exam Dilation (cm): 3 Effacement (%): 50 station: -3 Amniotic membrane status: Ruptured (clear) Comments: IUPC placed Status status: Category l Assessment and Plan Assessment: induction ongoing Comments: AROM for clear fluid. IUPC placed. Will start pitocin
[2023-02-05] MEDS: AMPICILLIN 1 GM/NS 50 ML 1 GM/50 ML BAG IVPB ×3 (12:03→20:46)
--- NOTE | 2023-02-05 16:49 | PC.NURSE ---
1630 - Introductions were made and mother shared how she would like to feed her baby with along with her past experience. Encouraged mother to place [id number] until the first feeding if is stable. Education was shared on how to protect her milk supply with latching and/or using hand expression to remove milk if doesn't latch in the first hour, then finger feed colostrum to the to preserve breast focus. Resources provided with educational trifold for bonding and feeding infant. Parents voiced understanding of information and to call if there is a request for assistance.
--- NOTE | 2023-02-05 21:35 | PM.IMHP ---
H&P: HPI History of Present Illness Date/Time: 02/05/23 21:35 Chief Complaint: 22-year-old at 39 weeks 0 days who presents for elective induction of labor. Patient progressed to complete dilation. station remained high. Exam after complete dilation showed terminal meconium. Concern for male presentation. Bedside ultrasound was performed which confirmed breech presentation. Review of Systems Cardiovascular: Cardiovascular: Denies chest pain, Denies leg edema, Denies palpitations, Denies dyspnea and Denies dyspnea on exertion Respiratory: Respiratory: Denies cough, Denies dyspnea and Denies dyspnea on exertion Gastrointestinal: Gastrointestinal: Denies abdominal pain, Denies constipation, Denies diarrhea, Denies nausea and Denies vomiting Genitourinary: Genitourinary: Denies hematuria, Denies urinary frequency, Denies dysuria, Denies pelvic pain, Denies urinary incontinence and Denies vaginal discharge Neurologic: Reports system reviewed and no additional complaints, except as documented Psychiatric: Psychiatric: Reports no additional psychiatric complaints Endocrine: Endocrine: Denies palpitations PMFSH Past Medical History Medical History ADHD (attention deficit hyperactivity disorder) Anxiety and depression 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 Right wrist fracture Suppression of menses Suppression of menses Vaginal discharge Surgical History Surgical History H/O sinus surgery History of brain surgery for infection History of tonsillectomy and adenoidectomy Hx of cholecystectomy Family History Family History Father Diabetes mellitus Heart disease Cerebrovascular accident Grandparent Lung cancer Other Lung cancer Social History Social History Smoking status: Current some day smoker Tobacco type: e-cigarettes/vaping Second hand tobacco smoke exposure: No Additional smoking assessment comments: started vaping at 14 Alcohol intake: never Substance use: current Last use: December 2022 Lack of Transportation: No Lack of Food: Never True Current Housing: I Have Housing Concerned About Future Housing: No Difficulty Paying Gas/Electric Bills: No Difficulty Paying for Meds: No Currently Unemployed: No Education: Trade/Vocational Certificate Difficulty w/ Childcare or Family Care: No Living arrangements: with family Occupation/Education: occupation Gender identity (if verbalized by the patient): Female Spiritual care concerns: No Meds Home Medications and Allergies Home Medications Medication Instructions Recorded Confirmed Type ondansetron HCl 4 mg tablet 4 mg PO Q6H PRN nausea and 07/30/22 01/16/23 Rx vomiting #30 tabs aspirin 81 mg tablet,delayed 162 mg PO DAILY 09/02/22 01/16/23 History release meclizine 25 mg tablet 25 mg PO BID PRN dizziness #60 tabs 10/01/22 01/16/23 Rx cetirizine 10 mg capsule (Zyrtec) 10 mg PO DAILY PRN Allergy Symptoms 10/29/22 02/05/23 History heparin (porcine) 5,000 unit/mL 5,000 unit subcut Q12H #25 mL 01/16/23 02/05/23 Rx injection solution methylphenidate HCl 10 mg tablet 10 mg PO BID 01/16/23 02/05/23 History methylphenidate HCl 5 mg tablet 5 mg PO BID 01/16/23 02/05/23 History Allergies Allergy/AdvReac Type Severity Reaction Status Date / Time vancomycin Allergy Mild Hives Verified 02/04/23 10:44 Vital Signs Vital Signs - 24 hr 02/05/23 07:30 02/05/23 07:45 02/05/23 08:00 Temperature Pulse Rate 91 90 95 Blood Pressure 112/62 114/70 114/52 L Pulse Oximetry 02/05/23 08:15 02/05/23 08:30 02/05/23 08:34 Temperature 97.6 F Pulse Rate 82 88 Blood Pressure 121/78 111/58 L Pulse Oximetry 02/05/23 08:45 02/05/23 09:00 02/05/23 09:15 Temper
--- NOTE | 2023-02-05 22:56 | P.PCNOB_ITS ---
OB - Delivery Note Procedure Procedure: Procedures Operation Date: 02/05/23 21:40 <No data on this case meets the specified criteria> Events: Breech Presentation Route of delivery: Prior to decision for section, [facility] labor guidelines were considered and discussed with the patient and staff. Decision made to proceed with the section.: Yes Laceration Description: None Quantitative Blood Loss (ml): 695 Anesthesia type: Epidural Disposition: Floor [place] Baby Weeks of gestation at delivery: 39 gender: Female Weight (pounds): 7 Weight (ounces): 2 presentation: breech
--- NOTE | 2023-02-05 22:57 | W.PM.PROC2 ---
Procedure Note - Detailed Date of Procedure 02/05/23 Pre-op Diagnosis intrauterine at term malpresentation Post-op Diagnosis Same Procedure Performed low transverse section Surgeon Flip Tim MD Anesthesia Epidural Description of Procedure The patient was taken to the operating room. A combined spinal epidural anesthesic was administered and found to be adequate at a t-10 level. The patient was placed in a supine position with a slight left lateral tilt. A maldonado catheter was placed with return of clear urine. A Bovie grounding pad was placed. Surgical prep was performed and surgical drapes were placed. A surgical time out was performed. A Pfannenstiel skin incision was then made with the scalpel and carried through to the underlying layer of fascia. The fascia was then incised in the midline and the incision was extended laterally with the Phelps scissors. The superior aspect of the fascia was then grasped with the Carlos clamps, elevated, and the underlying rectus muscles dissected off bluntly and sharply. Attention was then turned to the inferior aspect of this incision which, in a similar fashion, was grasped, tented up with the Carlos clamps, and the rectus muscles dissected off both bluntly and sharply. The rectus muscles were then in the midline. The left rectus muscle belly was noted to be bleeding. Bleeding was made hemostatic with 2 figuire of 8 sutures of 0-vicryl. The peritoneum was identified and entered bluntly. The peritoneal incision was then extended superiorly and inferiorly with good visualization of the bladder. Julien retractor was then inserted. The uterus was inspected for rotation. A low-transverse uterine incision was made sharply with the scalpel and entry was made into the uterine cavity. The uterine incision was extended laterally bluntly. The buttocks was noted at the hysterotomy with spine anterior. The buttocks was delivered through the hysterotomy. The abdomen was wrapped in a blue towel and gentle traction was applied to deliver the fetus to the sternum. The fetus was then rotated to allow delivery of the right extremity by gently sweeping across the face and upper chest. Similar procedure was performed to deliver the left extremity. The head was then flexed and delivered through the hysterotomy with gentle traction. The nose and mouth were suctioned with a bulb syringe. The umbilical cord was clamped twice and cut. The was handed off to the waiting staff. A second segment of umbilical cord was clamped and cut for cord blood gasses. Cord blood was collected for determination of the blood type and for direct Rapp. The placenta was delivered spontaneously without difficulty. The placenta appeared grossly normal and complete. The uterus was exteriorized and cleared of all clots and debris. The uterine incision was repaired using 0-monocryl suture in a running fashion. A second layer of 0 Monocryl suture was used in an imbricating fashion to obtain excellent hemostasis and uterine strength. The uterine closure was inspected for hemostasis. The posterior aspect of the uterus and the broad ligaments were inspected and the posterior cul-de-sac cleared of fluid and blood clots. The uterine closure was again inspected and found to be hemostatic. The uterus was returned to the abdominal cavity. The pericolic gutters were inspected and were cleared of all blood clots and debris. The uterine closure was then re inspected to ensure hemostasis as were all subfascial tissues. The peritoneum was closed using 3-0 vicryl in a running fashion. The fascia was reapproximated with 0-vicryl in a running fashion. The subcutaneous tissue was irrigated and hemostasis achieved with electrocautery. It was reapproximated with 3-0 vicryl in a running fashion. The skin was closed with 4-0 vicryl in a subcuticular fashion. A sterile dressing was applied to the wound. The patient
[2023-02-06] VITALS (34 sets, daily range): BP systolic 96–116; BP diastolic 47–66; PULSE 71–91; RESP 14–18; TEMP 36.6–36.9; O2SAT 96–100
[2023-02-06] MEDS: MORPHINE SULFATE INJ (*CRX) 10 MG/ML AMP 2 MG IV PUSH (01:23)
--- NOTE | 2023-02-06 02:07 | PC.NURSE ---
Patient transferred to care by this RN and 2 techs. Report given to Daniella MORALES with all questions answered at this time.
[2023-02-06] MEDS: HYDROcodone/acetaminophen (*CRX) 5-325 MG TABLET 1 TAB (02:15)
[2023-02-06] MEDS: KETOROLAC 30 MG/ML VIAL (*BKC) (02:15)
[2023-02-06] MEDS: LORATADINE 10 MG TABLET PO (03:47)
[2023-02-06 04:34] LABS: Basophils Absolute Auto 0.1 K/mm3 (0.0-0.1); Basophils Percent Auto 0.3 % (0.2-1.2); Eosinophils Absolute Auto 0.1 K/mm3 (0-0.3); Eosinophils Percent Auto 0.4 % (0-4.4); Hematocrit 30.2 % (37.0-47.0); Hemoglobin 9.3 g/dL (12.0-15.0); Immature Granulocyte Absolute 0.11 K/mm3 (0.00-0.031); Immature Granulocyte Percent A 0.7 % (0-0.5); Lymphocytes Absolute Auto 1.92 K/mm3 (0.9-3.2); Lymphocytes Percent Auto 11.8 % (18.3-44.2); Mean Corpuscular HGB Conc 30.8 g/dl (32-36); Mean Corpuscular Hemoglobin 26.8 pg (26-34); Mean Platelet Volume 8.4 fl (7.4-10.4); Monocytes Absolute Auto 1.1 K/mm3 (0.1-0.6); Neutrophils Percent Auto 79.8 % (45.5-73.1); Platelet Count Result 143 k/mm3 (150-375); Red Blood Count 3.47 M/mm3 (4.2-5.4); Red Cell Distribution Width 14.5 % (11.5-14.5); White Blood Count 16.3 K/mm3 (4.5-10.0)
[2023-02-06] MEDS: DEXTROSE 5%/0.45% SOD CHL 1,000 ML 125 ML IV CONT (06:00)
--- NOTE | 2023-02-06 07:15 | PC.NURSE ---
PT introductions made and plan of care discussed per post op c section, daily care activities, breast feeding, and pain management. PT and fob both recipients of such instructions and no barriers to learning identified at this time. PT received such instructions per one to one discussion, mom baby care guide and demonstrations this shift. PT verbalized understanding of such care.
--- NOTE | 2023-02-06 08:06 | WPDANLDPN2 ---
Anes-Prog Note L&D Date/Time: 02/06/23 08:06 Comfortable throughout: labor and section Neuraxial method: epidural Epidural/Spinal procedure site: clean & non-tender Neuro status: Neuro function grossly intact. patient has catheter still in place. Leg function is back to baseline with no complications. Cardiovascular status: normal Respiratory status: normal Airway patency: baseline Mental status: baseline Post-Op hydration status: normal Vital Signs: Last Vital Signs Temp 36.7 C 02/06/23 02:00 Pulse 81 02/06/23 02:00 Resp 16 02/06/23 02:00 BP 116/66 02/06/23 02:00 Pulse Ox 100 02/06/23 01:36 O2 Del Method Room Air 02/06/23 02:00 Pain score (VAS): 3 I/O: Intake & Output 02/05/23 02/06/23 02/06/23 23:59 07:59 15:59 Intake Total 1050 1000 Output Total 325 Balance 1050 675 Post-procedural complaints: none Patient feedback: Patient satisfied with anesthetic care.
--- NOTE | 2023-02-06 08:07 | WPDANLDNPN2 ---
Anes-Prog Note L&D-Neuraxial Date/Time: 02/06/23 08:07 Neuraxial medications: epidural PF morphine Opiod-related complaints: none Patient feedback: Patient satisfied with post-operative pain management.
[2023-02-06] MEDS: IBUPROFEN 600 MG TABLET PO ×3 (09:32→23:45)
[2023-02-06] MEDS: SIMETHICONE 80 MG TAB.CHEW PO ×5 (09:32→23:45)
[2023-02-06] MEDS: diphenhydrAMINE HCl CAP 25 MG CAPSULE PO (09:33)
[2023-02-06] MEDS: MULTIVIT/MIN/PREN/FOL AC/IRON TABLET 1 TAB PO (09:33)
[2023-02-06] MEDS: DOCUSATE SODIUM 100 MG CAPSULE PO ×2 (09:33→16:52)
[2023-02-06] MEDS: LANOLIN (LANSINOH) 7.5 GM CREAM 1 APPLIC TOPICAL (09:33)
[2023-02-06] MEDS: HYDROcodone/acetaminophen (*CRX) 5-325 MG TABLET 1 TAB PO ×3 (09:33→23:45)
[2023-02-06] MEDS: POLYSACCHARIDE IRON COMPLEX 150 MG CAPSULE PO ×2 (09:33→16:54)
[2023-02-06] MEDS: ENOXAPARIN 40 MG/0.4 ML SYRINGE SUB-Q (09:36)
--- NOTE | 2023-02-06 10:16 | P.PNOB_ITS ---
OB - PN: Subj Subjective Date/time seen: 02/06/23 10:16 Patient comments: no complaints and pain well controlled Narrative: patient doing well this morning. She has not yet ambulated out of bed. Patient reports some pain but states her medications make a tolerable. She denies any bleeding issues. OB - PN: Obj Data Labs 02/06/23 04:27 Labs: Laboratory Results - last 24 hr 02/06/23 04:27 WBC 16.3 H RBC 3.47 L Hgb 9.3 L Hct 30.2 L MCV 87.0 MCH 26.8 MCHC 30.8 L RDW 14.5 Plt Count 143 L MPV 8.4 Immature Gran % (Auto) 0.7 H Neut % (Auto) 79.8 H Lymph % (Auto) 11.8 L [place] % (Auto) 7.0 Eos % (Auto) 0.4 Baso % (Auto) 0.3 Lymph # (Auto) 1.92 [place] # (Auto) 1.1 H Eos # (Auto) 0.1 Baso # (Auto) 0.1 Abs Immat Gran (auto) 0.11 H Absolute Neuts (auto) 13.0 H Absolute Nucleated RBC 0.0 Nucleated RBC % 0.0 OB - PN A/P Plan day: 1 Plan: routine care Comments: patient doing well H/H .10/03, continue iron supplementation afebrile, VSS incision C/D/I will restart lovenox today continue routine post op care Time Spent With Patient Time: Total time spent is greater than 50% in coordination of care (as documented) at patient's floor/unit and/or counseling patient: Time with patient: less than 15 minutes Review of Systems Constitutional: Constitutional: Reports no additional constitutional complaints Cardiovascular: Cardiovascular: Reports no additional cardiovascular complain ts Respiratory: Respiratory: Reports no additional respiratory complaints Gastrointestinal: Gastrointestinal: Reports no additional gastrointestinal complaints Genitourinary: Genitourinary: Reports no additional female genitourinary compl aints Exam Const: General: comfortable and no acute distress Resp: Effort & Inspection: normal respiratory effort Auscultation: clear to auscultation bilaterally Cardio: Rate: regular rate GI: GI Palp: Yes Soft to palpation, Yes Tenderness to palpation present (GI) (around incision ) and No Guarding due to palpation present (GI) Auscultation: normal bowel sounds Other: incision C/D/I, covered with Dermabond Psych: Appearance: grossly normal Mental Status: mental status grossly normal Affect: normal affect
--- NOTE | 2023-02-06 16:16 | PC.NURSE ---
[id number] Mother verbalizes she is able to independently latch with appropriate positioning/alignment. She denies any nipple discomfort and is responsively on the right breast at this time. is demonstrating effective with good rocking jaw motion with lowering of the jaw for swallows before a pause. is currently meeting outcomes for weight, output, jaundice and feeding frequencies of 8-12 times in 24 hours. Mother declines any additional assistance/education at this time. Mother is encouraged to call for assistance if her infant doesn?t latch or there is discomfort with latching. Mother voiced understanding of information shared and the mom reminded of the mom/baby guide for an additional resource. Reported to the primary RN.
[2023-02-06] MEDS: HYDROcodone/acetaminophen (*CRX) 10-325 MG TABLET 1 TAB PO ×2 (16:53→20:30)
[2023-02-07] MEDS: HYDROcodone/acetaminophen (*CRX) 5-325 MG TABLET 1 TAB PO ×3 (03:26→11:55)
[2023-02-07] MEDS: SIMETHICONE 80 MG TAB.CHEW PO ×2 (03:28→07:42)
[2023-02-07] MEDS: DOCUSATE SODIUM 100 MG CAPSULE PO (07:31)
[2023-02-07] MEDS: MULTIVIT/MIN/PREN/FOL AC/IRON TABLET 1 TAB PO (07:31)
[2023-02-07] MEDS: POLYSACCHARIDE IRON COMPLEX 150 MG CAPSULE PO (07:31)
[2023-02-07] MEDS: IBUPROFEN 600 MG TABLET PO (07:31)
[2023-02-07] MEDS: ENOXAPARIN 40 MG/0.4 ML SYRINGE SUB-Q (07:31)
--- NOTE | 2023-02-07 08:19 | PM.OBDSVD ---
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: Code(s): D68.52 - Prothrombin gene mutation Status: Acute OB - DS: Summary OB Procedures : None OB Procedures Intrapartum: OB Procedures: : None Peripartum Data Infant Delivery Method: Section Procedures: Procedures Operation Date: 02/05/23 21:40 Actual Procedure Side Surgeon p Section Flip Tim MD complications: none Status at Discharge Functional status at discharge: independent ambulation Overall status at discharge: patient is progressing back to baseline Time Spent with Patient Time attestation: Total time spent providing and/or coordinating discharge services: Time spent: Less than 30 minutes Exam Const: General: comfortable and no acute distress Resp: Effort & Inspection: normal respiratory effort Auscultation: clear to auscultation bilaterally Cardio: Rate: regular rate GI: Inspection: non-distended GI Palp: Yes Soft to palpation, No Firmness to palpation present (GI), Yes Tenderness to palpation present (GI) (mild tenderness over incision ) and No Guarding due to palpation present (GI) Auscultation: normal bowel sounds Psych: Appearance: grossly normal Mental Status: mental status grossly normal Discharge Plan Discharge Discharging Clinician: Flip Tim Patient Disposition: Home, Self-Care Activity: as tolerated and pelvic rest Diet: regular Patient Instructions: Antibiotic Form, (DC) Stand Alone Forms: General Discharge Information Follow-up/Referrals: Flip Tim MD [Physician] - Discharge Medications: New oxycodone-acetaminophen 5-325 mg tablet 1 tablet PO Q6H PRN (Reason: pain) Qty: 28 0RF enoxaparin [Lovenox] 40 mg/0.4 mL Syringe 40 mg subcut DAILY 42 Days Qty: 16.8 0RF polysaccharide iron complex 150 mg iron Capsule 150 mg PO BIDWM Qty: 60 0RF ibuprofen 600 mg tablet 600 mg PO Q6H PRN (Reason: pain) Qty: 30 0RF Continued ondansetron HCl 4 mg tablet 4 mg PO Q6H PRN (Reason: nausea and vomiting) Qty: 30 1RF Zyrtec 10 mg capsule 10 mg PO DAILY PRN (Reason: Allergy Symptoms) meclizine 25 mg tablet 25 mg PO BID PRN (Reason: dizziness) Qty: 60 0RF methylphenidate HCl 10 mg tablet 10 mg PO BID Rx Instructions: Takes 15 mg as total dose methylphenidate HCl 5 mg tablet 5 mg PO BID Rx Instructions: Takes 15 mg total dose twice daily Discontinued aspirin 81 mg tablet,delayed release (DR/EC) 162 mg PO DAILY heparin (porcine) 5,000 unit/mL solution 5,000 unit subcut Q12H Qty: 25 7RF Patient Comments: To start Heparin 01/16/23 pm Date of admission: 02/05/23 06:33 Primary Care Provider: Ru Andrea Admitting Provider: Flip Tim Attending physician on admission: Flip Tim Condition: Stable
[2023-02-07 08:30] VITALS: BP 115/68; PULSE 87; RESP 16; TEMP 36.6; O2SAT 100
--- NOTE | 2023-02-07 17:58 | PC.NURSE ---
Addendum entered by Daina Mcbride RN 02/07/23 18:05: Discussed and recommended mother to not smoke marijuana while as well. Original Note: 1345 - Mother led the conversation with her experience and plan to feed her so far and her ability to independently latch infant optimally without discomfort. Reminded parents to use good handwashing technique to prevent infection. Mother is feeding appropriately for growth of and understands stimulating to eat if needed. has had appropriate feedings in the last 24 hours meets the outcomes for weight, output and jaundice at this time. Mother states she is confident to continue effectively breastfeed her at home, when to call for assistance and denies any additional assistance or education at this time. Reinforced understanding of milk production, transition of milk, signs of adequate intake, transition of stool, prevention/relief of engorgement, responsive watching for feeding cues, the different methods of stimulating infant to breastfeed 2-3 hours after the start of the last feeding, community resources, medication information reviewed per [facility], smoking/vaping cessation and when to call a provider using the resource of the mom and baby guide. Mother voiced understanding of the education shared.
[2023-02-08 10:02] VITALS: BP 117/73; PULSE 84; RESP 16; TEMP 36.9; O2SAT 100
== END 2023-02-07 14:32 | disposition home or self-care (01) | DRG 787 ==
LOC: ANHLDR 06:38 → ANHOB2 02-06 01:45
PROVIDERS: Admitting Provider Student in an Organized Health Care Education/Training Program; PCP Family Medicine; Visit Provider Student in an Organized Health Care Education/Training Program
PROC: 10D00Z1 Extraction of Products of Conception, Low, Open Approach (ICD-10-PCS; CPT 59514; principal; 2023-02-05 21:40)
DX: O32.1XX0 Maternal care for breech presentation, not applicable or unspecified (principal); D68.52 Prothrombin gene mutation; O99.12 Other diseases of the blood and blood-forming organs and certain disorders involving the immune mechanism complicating childbirth; O99.824 Streptococcus B carrier state complicating childbirth; Z37.0 Single live birth; Z3A.39 39 weeks gestation of pregnancy; O77.0 Labor and delivery complicated by meconium in amniotic fluid; Z86.718 Personal history of other venous thrombosis and embolism
CPT/HCPCS: 36415; 85025; 86592; 86850; 86900; 86901; A9270; J0290; J1650; J1885; J2270; J2274; J2590; J2795; J7120

== ENCOUNTER 2023-03-11 11:41 | Outpatient (CLI) | payer MEDICAID, SELFPAY ==
[2023-03-11 13:14] LABS: Beta HCG Quantitative < 2.39 mIU/ML
== END 2023-03-11 11:42 | disposition home or self-care (01) ==
PROVIDERS: PCP Family Medicine; Visit Provider Student in an Organized Health Care Education/Training Program
DX: Z30.430 Encounter for insertion of intrauterine contraceptive device (principal)
CPT/HCPCS: 36415; 84702

== ENCOUNTER 2024-05-31 08:22 | Emergency (ER) | payer OTHER, MEDICAID, SELFPAY ==
[2024-05-31 08:28] VITALS: BP 118/78; PULSE 93; RESP 20; TEMP 36.4; O2SAT 100
--- NOTE | 2024-05-31 08:50 | ED_ITS ---
HPI - Ear Problem General Chief complaint: Ear Stated complaint: Ear Pain Time Seen by Provider: 05/31/24 08:51 Source: patient and RN notes reviewed Mode of arrival: ambulatory Limitations: no limitations History of Present Illness HPI Narrative: 24-year-old female presents with concern for your pain in the right ear for 3 days. She reports intermittent dizziness. She reports nasal congestion. Reports she was seen 2 days ago for the similar symptoms. Reports she was told everything was fine. She had negative fluid COVID symptoms. MD Complaint: ear pain Related Data Home Medications Medication Instructions Recorded Confirmed levonorgestrel 21 mcg/24 hr (up to 1 device intrauterine ONCE 03/12/23 06/11/23 8 years) 52 mg intrauterine device (Mirena) methylphenidate HCl 20 mg tablet 20 mg PO 03/12/23 06/11/23 Allergies Allergy/AdvReac Type Severity Reaction Status Date / Time vancomycin Allergy Mild Hives Verified 06/11/23 13:14 Review of Systems Review of Systems: CONSTITUTIONAL: Denies malaise, chills, sweats, or fever. EYES: Denies visual changes, redness, or discharge. ENT: Denies rhinorrhea, sinus pain, and sore throat. Reports nasal congestion and right ear pain CARDIOVASCULAR: Denies chest pain, palpitations, or edema. RESPIRATORY: Denies cough. Denies dyspnea. GASTROINTESTINAL: Denies abdominal pain, nausea, vomiting, diarrhea SKIN: Denies rash or itching. MUSCULOSKELETAL: Denies myalgia. NEUROLOGIC: Denies headache. 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 Right wrist fracture Suppression of menses Suppression of menses Vaginal discharge Surgical History Surgical History H/O gynecological procedure 03/12/23 Mirena IUD insertion H/O sinus surgery History of brain surgery for infection History of delivery History of tonsillectomy and adenoidectomy Hx of cholecystectomy Family History Family History Father Diabetes mellitus Heart disease Cerebrovascular accident Grandparent Lung cancer Other Lung cancer Social History Social History Smoking status: Current some day smoker Tobacco type: e-cigarettes/vaping Second hand tobacco smoke exposure: No Additional smoking assessment comments: started vaping at 14 Alcohol intake: never Substance use: current Last use: December 2022 Lack of Transportation: No Lack of Food: Never True Current Housing: I Have Housing Concerned About Future Housing: No Difficulty Paying Gas/Electric Bills: No Difficulty Paying for Meds: No Currently Unemployed: No Education: Trade/Vocational Certificate Difficulty w/ Childcare or Family Care: No Living arrangements: with family Occupation/Education: occupation Gender identity (if verbalized by the patient): Female Spiritual care concerns: No Comments At time of signature, agree with nursing past medical, surgical, social and family history. There is no relevant family history pertinent to the presenting complaint Exam Narrative: GENERAL: Well-appearing, well-nourished, and in no acute distress. HEAD: Normocephalic EYES: PERRLA, conjunctivae clear ENT: Nares clear, turbinates edematous, clear discharge. Mucous membranes moist. TM pearly kim with dull light reflex bilaterally; no tragal tenderness. Oropharynx not erythematous without lesions. Tonsils not enlarged and without exudate, no drooling, no hoarseness, no trismus, uvula midline. NECK: Supple. No lymphadenopathy CHEST: Clear to auscultation, breath sounds equal. No wheezing, rhonchi, rales, or stridor. No respiratory distress, speaks in full sentences. HEART: Regular rate and rhythm. No murmur heard. SKIN: Warm, dry, no rash. NEURO: Alert and oriented x3. PSYCH: Normal mood and affect Course Course Emergency Course: Patient is aware of diagnosis, understands and agrees to treatment plan. Anticipatory guidance given. Patient agrees to follow-up as directed and is aware of reasons to seek care at the emergency department. Portions of this record may have been created with voice recognition software Level of Care: Express Care Visit Vital Signs Vital signs: Vital Signs Temperature 97.6 F 05/31/24 08:28 Pulse Rate 93 05/31/24 08:28 Respiratory Rate 20 05/31/24 08:28 Blood Pressure 118/78 05/31/24 08:28 Pulse Oximetry 100 05/31/24 08:28 Oxygen Delivery Room Air 05/31/24 08:28 Temperature 97.6 F 05/31/24 08:28 Pulse Rate 93 05/31/24 08:28 Respiratory Rate 20 05/31/24 08:28 Blood Pressure 118/78 05/31/24 08:28 Pulse Oximetry 100 05/31/24 08:28 Oxygen Delivery Room Air 05/31/24 08:28 Reviewed. Medical Decision Making MDM Narrative Medical decision making narrative: I evaluated this in the [facility] care. History is obtained from patient who is an independent historian and physical exam was performed.? Available medical records were reviewed. ? Exam findings and relevant testing show no acute concerns or changes; patient is non-toxic appearing and is in no distress. Differential diagnosis considered: Grey virus, strep pharyngitis, allergic rhinitis, upper respiratory tract infection, sinusitis, rhinosinusitis, nasopharyngitis. viral pharyngitis, otitis media, otitis externa, otitis effusion, cerumen impaction, foreign body. Exam findings show no acute concerns or changes; patient is non-toxic appearing and is in no distress. Patient is appropriate for outpatient treatment and follow-up. ? Differential diagnosis and treatment plan were discussed with the patient. Patient agrees with discussion and after shared medical decision making agrees with plan of care. All questions were answered to the patient's satisfaction. Patient is appropriate for outpatient treatment and follow-up. Vital Signs Vital Signs: Vital Signs Temperature 97.6 F 05/31/24 08:28 Pulse Rate 93 05/31/24 08:28 Respiratory Rate 20 05/31/24 08:28 Blood Pressure 118/78 05/31/24 08:28 Pulse Oximetry 100 05/31/24 08:28 Oxygen Delivery Room Air 05/31/24 08:28 Temperature 97.6 F 05/31/24 08:28 Pulse Rate 93 05/31/24 08:28 Respiratory Rate 20 05/31/24 08:28 Blood Pressure 118/78 05/31/24 08:28 Pulse Oximetry 100 05/31/24 08:28 Oxygen Delivery Room Air 05/31/24 08:28 Critical Care Time Critical Care Time Critical Care Time: No Discharge Plan Discharge Clinical Impression: Upper respiratory infection Patient Disposition: Home, Self-Care Condition: Stable Instructions: Upper Respiratory Infection (ED) Additional Instructions: Symptomatic treatment of a sinus infection aims to relieve symptoms. These treatments do not shorten the duration of illness. Nonprescription pain medications, such as acetaminophen (eg, Tylenol) or ibuprofen (eg, Motrin, Advil), are recommended for pain. Flushing the nose and sinuses with a saline solution several times per day has been proven to decrease pain associated with congestion and shorten the duration of symptoms. Nasal steroids (such as Flonase, 2 sprays in each nostril daily) can help to reduce swelling inside the nose, usually within two to three days. These drugs have few side effects and relieve symptoms in most people. Oral decongestants (pseudoephedrine and phenylephrine) may be helpful if you have associated symptoms of ear pain or fullness. Nasal decongestant sprays, including oxymetazoline (Afrin) and phenylephrine (Paulo-Synephrine), can be used to temporarily treat congestion. However, these sprays should not be used for more than two to three days due to the risk of rebound congestion (when the nose becomes congested constantly unless the medication is used repeatedly), possible addiction, and long-term consequences of frequent use, including persistent nasal dryness and crusting, which is very difficult to treat once it has developed. Medications to thin secretions (such as guaifenesin) may help to clear mucus. Please follow-up with your primary care doctor in the next 1-2 days. If you cannot follow-up with your primary care doctor please go to the ED for any urgent issues. If you have any worsening of symptoms or any other concerns please go to the ED immediately. Prescriptions: New pseudoephedrine HCl [12 Hour Decongestant] 120 mg tablet extended release 120 mg PO Q12H PRN (Reason: nasal congestion) Qty: 20 0RF fluticasone propionate [Flonase Allergy Relief] 50 mcg/actuation spray,suspension 2 spray NASAL DAILY 14 Days Qty: 15.8 0RF Rx Instructions: administer into each nostril No Action Mirena 21 mcg/24 hours (8 yrs) 52 mg intrauterine device 1 device intrauterine ONCE Rx Instructions: as a single dose methylphenidate HCl 20 mg tablet 20 mg PO Follow-up/Referrals: Ru Andrea M.D. [Primary Care Provider] - Time of Disposition: 08:57
== END 2024-05-31 09:02 | disposition home or self-care (01) ==
PROVIDERS: Emergency Provider Nurse Practitioner; PCP Family Medicine
DX: J06.9 Acute upper respiratory infection, unspecified (principal); F17.290 Nicotine dependence, other tobacco product, uncomplicated; F90.9 Attention-deficit hyperactivity disorder, unspecified type
CPT/HCPCS: 99213; G0463

== ENCOUNTER 2024-07-20 08:18 | Outpatient (CLI) | payer MEDICAID, SELFPAY ==
--- NOTE | ~2024-07-20 | US_ITS ---
EXAMINATION: US pelvic complete w TV DATE: 07/20/2024 08:53 INDICATION: Displacement of intrauterine contraceptive device. TECHNIQUE: Multiple transabdominal and transvaginal sonographic images of the pelvis were obtained. COMPARISON: None. FINDINGS: TRANSABDOMINAL ULTRASOUND: The uterus measures 8.1 x 4.2 x 4.9 cm. There is no free fluid in the pelvis. TRANSVAGINAL ULTRASOUND: The endometrial complex measures 4 mm in thickness. There is an intrauterine device in expected posit ion. There is a nabothian cyst in the cervix. The right ovary measures 3.4 x 2.1 x 3.2 cm. The left o vary measures 3.1 x 2.5 x 3.6 cm. There is normal vascular flow in the ovaries. IMPRESSION: 1. Intrauterine device in expected position. Reviewed, dictated and finalized at location A. ITIONAL SERVICES DIRECTOR
== END 2024-07-20 08:19 | disposition home or self-care (01) ==
PROVIDERS: PCP Family Medicine; Visit Provider Student in an Organized Health Care Education/Training Program
DX: T83.32XA Displacement of intrauterine contraceptive device, initial encounter (principal)
CPT/HCPCS: 76830; 76856